=== PATIENT | female | born 1950 | race Caucasian/White ===

== ENCOUNTER 2018-12-20 10:32 | Outpatient (CLI) | payer MEDICARE, MEDICAID ==
--- NOTE | 2018-12-20 12:20 | ULT ---
RENAL ULTRASOUND: COMPARISON: None. HISTORY: Renal cyst. TECHNIQUE: Sagittal and transverse imaging of the kidneys performed. FINDINGS: RIGHT KIDNEY: Normal cortical echotexture. No hydronephrosis. No solid or cystic masses. The right kidney measur es 4.3 x 4.4 x 10.8 cm. LEFT KIDNEY: Normal cortical echotexture. No hydronephrosis. No solid masses. There do appear to be 2 separate anechoic foci measuring 0.6 and 0.6 cm respectively. A small cyst may be present. Overall, the left kidney measures 4.4 x 5.9 x 10.6 cm. Prevoid volume of the urinary bladder is 170 mL. No obvious mucosal abnormality. IMPRESSION: 1. No hydronephrosis. 2. Subcentimeter hypoechoic foci of the left kidney which may represent small subcentimeter cyst. POS: ADRIANNE
== END 2018-12-20 10:33 | disposition home or self-care (01) ==
LOC: BICULT 10:32
PROVIDERS: ATTEND Urology
DX: N28.1 Cyst of kidney, acquired (principal)
CPT/HCPCS: 76770